=== PATIENT | female | born 1965 | race Caucasian/White ===

== ENCOUNTER 2016-09-30 18:03 | Emergency (ER) | payer OTHER ==
[~2016-09-30] VITALS: Ht 160 cm; Wt 69.9 kg
[2016-09-30 19:37] LABS: INFLUENZA A VIRAL ANTIGEN NEGATIVE; INFLUENZA B VIRAL ANTIGEN POSITIVE
[2016-09-30] MEDS ORDERED: TAMIFLU75 MG PO (19:43)
[2016-09-30] MEDS ORDERED: PREDNISONE50 MG PO (19:43)
[2016-09-30 20:03] VITALS: BP 122/82
== END 2016-09-30 20:17 | disposition home or self-care (01) ==
LOC: EME 18:03
PROVIDERS: Physician Assistant
DX: J10.1 Influenza due to other identified influenza virus with other respiratory manifestations (principal); J45.909 Unspecified asthma, uncomplicated; B19.20 Unspecified viral hepatitis C without hepatic coma; Z87.442 Personal history of urinary calculi; Z87.891 Personal history of nicotine dependence
CPT/HCPCS: 87502; 94640; 99281; 99284; J7512